=== PATIENT | female | born 1945 | race Caucasian/White ===

== ENCOUNTER 2018-07-10 11:15 | Outpatient (CLI) | payer MEDICARE ==
[2018-07-10 12:40] LABS: MICROSCOPIC AUTO
[2018-07-10 12:40] LABS: BASOPHILS # (AUTO) 0.04 x10^3/uL (0-0.1); BASOPHILS % (AUTO) 1 % (0-1); EOSINOPHILS # (AUTO) 0.05 x10^3/uL (0-0.4); EOSINOPHILS % (AUTO) 1 % (1-7); LYMPHOCYTES # (AUTO) 2.67 x10^3/uL (1-3.4); LYMPHOCYTES % (AUTO) 32 % (22-44); MD NO; MEAN CORPUSCULAR HEMOGLOBIN 29.4 pg (27.0-34.8); MEAN CORPUSCULAR HGB CONC 32.9 g/dL (32.4-35.8); MEAN CORPUSCULAR VOLUME 89.2 fL (80-100); MEAN PLATELET VOLUME 8.9 fL (7.4-10.4); MONOCYTES # (AUTO) 0.69 x10^3/uL (0.2-0.8); MONOCYTES % (AUTO) 8 % (2-9); NEUTROPHILS # (AUTO) 4.98 x10^3/uL (1.8-6.8); NEUTROPHILS % (AUTO) 59 % (42-75); PLATELET COUNT 357 x10^3/uL (130-400); RED BLOOD COUNT 5.09 x10^6/uL (3.82-5.3); RED CELL DISTRIBUTION WIDTH 14.1 % (9.6-15.2)
[2018-07-10 12:42] LABS: CULTURE INDICATED? NO
[2018-07-10 12:46] LABS: INTERNATIONAL NORMALIZED RATIO 0.99 (0.93-1.1); PROTHROMBIN TIME 10.4 Seconds (9.6-11.5)
[2018-07-10 12:47] LABS: CHLORIDE 109 mmol/L (98-107)
[2018-07-10 12:52] LABS: ANION GAP 7 mmol/L (5-15); CALCIUM 10.1 mg/dL (8.5-10.1); CREATININE 1.17 mg/dL (0.55-1.02)
[2018-07-12] MEDS ORDERED: CHOL2000 PO (07:34)
[2018-07-12] MEDS ORDERED: CALC600T4 PO (07:34)
== END 2018-07-10 23:59 | disposition home or self-care (01) ==
LOC: STAR 11:15
PROVIDERS: ATTEND Neurological Surgery
DX: Z01.818 Encounter for other preprocedural examination (principal); M47.12 Other spondylosis with myelopathy, cervical region
CPT/HCPCS: 36415; 71046; 80048; 81001; 85025; 85610; 85730; 93005

== ENCOUNTER 2018-07-23 05:42 | Inpatient (IN) | payer MEDICARE ==
[~2018-07-23] VITALS: Ht 162.6 cm; Wt 54.8 kg
[~2018-07-23 05:42] MED LIST: CALC600T4 PO; CHOL2000 PO
[2018-07-23] MEDS ORDERED: LACTATED RINGERS 1,000 ML IV SCH (06:02)
[2018-07-23 06:06] VITALS: BP 144/79
[2018-07-23] MEDS ORDERED: VANCOMYCIN 1,000 MG ONE (06:51)
[2018-07-23] MEDS ORDERED: BACITRACIN OINT 500U/GM, 15 GM ONE (06:51)
[2018-07-23] MEDS ORDERED: BUPIVACAINE/PF 0.25% ONE (06:51)
[2018-07-23] MEDS ORDERED: BUPIVACAINE/PF-EPI 0.5% 1:200K ONE (06:51)
[2018-07-23] MEDS ORDERED: EPINEPHRINE 1 MG/ML, 1ML ONE (06:51)
[2018-07-23] MEDS ORDERED: THROMBIN 20,000 UNIT VIAL TP ONE (06:51)
[2018-07-23] MEDS ORDERED: BACITRACIN 50,000 UNIT ONE (06:52)
[2018-07-23] MEDS ORDERED: MIDAZOLAM 1 MG/ML, 2ML ONE (07:23)
[2018-07-23] MEDS ORDERED: FENTANYL PF 250 MCG/5ML ONE (07:23)
[2018-07-23] MEDS ORDERED: DIAZEPAM 5 MG TABLET PO ONE (07:30)
[2018-07-23] MEDS ORDERED: GABAPENTIN 300 MG CAPSULE PO ONE (07:30)
[2018-07-23] MEDS ORDERED: ACETAMINOPHEN 500 MG TABLET PO ONE (07:30)
[2018-07-23] MEDS ORDERED: PROPOFOL 50 ML ONE (07:57)
[2018-07-23] MEDS ORDERED: BUPIVACAINE/PF 0.25% INFIL ONE (08:29)
[2018-07-23] MEDS ORDERED: PROPOFOL 10 MG/ML, 20ML ONE ×2 (08:55→16:24)
[2018-07-23] MEDS ORDERED: DEXAMETHASONE 4 MG/ML, 1ML ONE (08:55)
[2018-07-23] MEDS ORDERED: CEFAZOLIN 1,000 MG ONE (08:55)
[2018-07-23] MEDS ORDERED: ONDANSETRON 2MG/ML, 2ML ONE (08:55)
[2018-07-23] MEDS ORDERED: PROMETHAZINE 25 MG/ML, 1ML IV PRN (09:00)
[2018-07-23] MEDS ORDERED: OXYcodone 5 MG/5 ML ORAL.SOL UDC PO PRN (09:00)
[2018-07-23] MEDS ORDERED: MIDAZOLAM 1 MG/ML, 2ML IV PRN (09:00)
[2018-07-23] MEDS ORDERED: FENTANYL PF 100 MCG/2ML IV PRN (09:00)
[2018-07-23] MEDS ORDERED: MEPERIDINE/PF 25MG/0.5ML IVPush PRN (09:00)
[2018-07-23] MEDS ORDERED: hydrALAzine 20 MG/ML, 1ML IV PRN (09:00)
[2018-07-23] MEDS ORDERED: ONDANSETRON 2MG/ML, 2ML IV PRN ×2 (09:00→11:30)
[2018-07-23] MEDS ORDERED: HYDROmorphone 2 MG/ML, 1ML IVPush PRN (09:00)
[2018-07-23] MEDS ORDERED: SCOPOLAMINE PATCH, 1.5MG PATCH.TD72 TD PRN (09:00)
[2018-07-23] MEDS ORDERED: ALBUTEROL/IPRATROPIUM 2.5MG/0.5MG, 3 ML NPPB PRN (09:00)
[2018-07-23] MEDS ORDERED: METHOCARBAMOL 750 MG TABLET ONE (10:47)
[2018-07-23 11:12] VITALS: BP 147/76
[2018-07-23] MEDS ORDERED: HYDROcodone/APAP 5/325 TABLET PO PRN (11:30)
[2018-07-23] MEDS ORDERED: DIPHENHYDRAMINE 50 MG/ML, 1ML IM PRN (11:30)
[2018-07-23] MEDS ORDERED: BISACODYL 10 MG SUPP PR PRN (11:30)
[2018-07-23] MEDS ORDERED: DIPHENHYDRAMINE 50 MG/ML, 1ML IVPush PRN (11:30)
[2018-07-23] MEDS ORDERED: MAGNESIUM HYDROXIDE 8%, 30ML UDC PO PRN (11:30)
[2018-07-23] MEDS ORDERED: PROMETHAZINE 25 MG/ML, 1ML IM PRN (11:30)
[2018-07-23] MEDS ORDERED: LABETALOL 5MG/ML, 20ML IV SCH (11:30)
[2018-07-23] MEDS ORDERED: DIPHENHYDRAMINE 50 MG CAPSULE PO PRN (11:30)
[2018-07-23 12:30] VITALS: BP 144/77
[2018-07-23] MEDS: NS + 20MEQ KCL 1,000 ML IV SCH (13:13)
[2018-07-23] MEDS: OXYcodone/APAP 5/325MG TABLET PO PRN ×2 (13:46→18:55)
[2018-07-23] MEDS: CEFAZOLIN PMX 1GM/50ML 50 ML IVPB SCH ×2 (15:51→23:59)
[2018-07-23] MEDS ORDERED: METHOCARBAMOL 750 MG TABLET PO ONE (16:00)
[2018-07-23] MEDS ORDERED: SUCCINYLCHOLINE 20 MG/ML, 10ML ONE (16:24)
[2018-07-23] MEDS ORDERED: EPHEDRINE 50 MG/ML, 1ML ONE (16:24)
[2018-07-23] MEDS ORDERED: PHENYLEPHRINE 10 MG/ML ONE (16:24)
[2018-07-23] MEDS ORDERED: ROCURONIUM 10MG/ML,5ML ONE (16:24)
[2018-07-23 20:27] VITALS: BP 122/60
[2018-07-23] MEDS ORDERED: ZOLPIDEM 5MG TABLET PO PRN (21:00)
[2018-07-23] MEDS: CHOLECALCIFEROL 1,000 UNIT TABLET PO SCH (21:40)
[2018-07-23] MEDS: CALCIUM CARBONATE 500 MG TABLET PO SCH (21:40)
[2018-07-24 00:12] VITALS: BP 139/68
[2018-07-24 04:27] VITALS: BP 116/60
[2018-07-24] MEDS: METHOCARBAMOL 750 MG TABLET PO SCH ×2 (04:36→12:39)
[2018-07-24] MEDS: NS + 20MEQ KCL 1,000 ML IV SCH ×2 (07:55)
[2018-07-24 07:59] VITALS: BP 118/67
[2018-07-24] MEDS: CALCIUM CARBONATE 500 MG TABLET PO SCH (08:03)
[2018-07-24] MEDS: CHOLECALCIFEROL 1,000 UNIT TABLET PO SCH (08:03)
[2018-07-24] MEDS: OXYcodone/APAP 5/325MG TABLET PO PRN ×2 (08:03)
[2018-07-24] MEDS ORDERED: OXYC1TAB7 PO (08:05)
[2018-07-24] MEDS ORDERED: METH750T2 PO (08:05)
[2018-07-24] MEDS ORDERED: SENNA/DOCUSATE TABLET PO SCH (09:00)
[2018-07-24] MEDS ORDERED: METH750T87 PO (09:39)
[2018-07-24] MEDS ORDERED: OXYC5CAP2 PO (09:40)
[2018-07-24] MEDS ORDERED: ENOXAPARIN 40 MG/0.4 ML SQ SCH (10:00)
== END 2018-07-24 12:54 | disposition home or self-care (01) | DRG 472 ==
LOC: ORIP 05:42 → 4NOR 11:00 → DCLOUNGE 07-24 12:45
PROVIDERS: ADMIT Neurological Surgery; ATTEND Neurological Surgery
PROC: 4A11X4G Monitoring of Peripheral Nervous Electrical Activity, Intraoperative, External Approach (ICD-10-PCS; 2018-07-23)
PROC: 0RG1071 Fusion of Cervical Vertebral Joint with Autologous Tissue Substitute, Posterior Approach, Posterior Column, Open Approach (ICD-10-PCS; principal; 2018-07-23 07:30)
DX: M48.02 Spinal stenosis, cervical region (principal); M47.12 Other spondylosis with myelopathy, cervical region; K58.9 Irritable bowel syndrome, unspecified; M43.12 Spondylolisthesis, cervical region; Z90.49 Acquired absence of other specified parts of digestive tract; Z98.51 Tubal ligation status; Z90.89 Acquired absence of other organs; Z88.6 Allergy status to analgesic agent; Z82.61 Family history of arthritis
CPT/HCPCS: 72040; C1713; C1729; G0378; J0171; J0690; J1100; J1650; J2250; J2405; J2704; J3010; J3370; J3480; J3490; J0330; J2370; J7120